=== PATIENT | female | born 1990 | race American Indian/Alaskan Native ===

== ENCOUNTER 2016-11-14 13:28 | Emergency (ER) | payer MEDICAID ==
[2016-11-14 14:18] LABS: Basophils % (Auto) 0.2 % (0.0-1.8); Eosinophils % (Auto) 1.3 % (0.0-4.3); Hematocrit 35.6 % (30.3-42.9); Hemoglobin 11.6 gm/dl (10.1-14.3); Mean Corpuscular HGB Conc 33 % (30-34); Mean Corpuscular Hemoglobin 26 pg (28-32); Mean Corpuscular Volume 81 fl (79-97); Platelet Count 237 K/mm3 (140-440); Red Blood Count 4.42 M/mm3 (3.65-5.03); Red Cell Distribution Width 15.7 % (13.2-15.2); White Blood Count 7.6 K/mm3 (4.5-11.0)
[2016-11-14 14:45] LABS: Anion Gap 18 mmol/L; Blood Urea Nitrogen 8 mg/dL (7-17); Calcium 9.1 mg/dL (8.4-10.2); Carbon Dioxide 22 mmol/L (22-30); Chloride 101.3 mmol/L (98-107); Glucose 99 mg/dL (65-100); Potassium 3.7 mmol/L (3.6-5.0); Sodium 138 mmol/L (137-145)
[2016-11-14] MEDS ORDERED: PEPCID IV ONE (15:11)
[2016-11-14] MEDS ORDERED: BENADRYL IV ONE ×2 (15:11→16:32)
[2016-11-14] MEDS ORDERED: NACL 0.9% 1000 ML 1,000 ML IV ONE (15:11)
[2016-11-14] MEDS ORDERED: TYLENOL PO ONE (15:11)
--- NOTE | 2016-11-14 15:13 | Emergency Department Report ---
ED General Adult HPI - General Chief complaint: Chest Pain Stated complaint: CHECK POSS BLOOD CLOT IN LUNG/CHEST PAIN Time Seen by Provider: 11/14/16 14:59 Source: patient, RN notes reviewed Mode of arrival: Ambulatory Limitations: No Limitations - History of Present Illness Initial comments: This is a 26-year-old female. She is previously unknown to me. She is 5, para 2. Last menstrual period is September 25. The patient is currently , and is scheduled for termination on November 18. The patient has a history of lower extremity DVT, and subsequent pulmonary embolus. She reports that she was on systemic anticoagulation, xarelto, but ran out of her medication 5 months ago. The patient presents to the ER complaining of chest pain. The chest pain is central. It radiates to the back. There is no vomiting or diaphoresis. There is no shortness of breath. There is no hematemesis of bright red blood per rectum. There is no abdominal pain. The patient denies irritative obstructive urinary symptoms. The pain has been present for 2 weeks. The patient reports taking Aleve at home multiple times without improvement in her pain. The patient reports that she was diagnosed with a pulmonary embolus while living in [place]. The patient indicates that she initially had a nuclear medicine study, which was initially read as negative, and subsequently found to be a false negative. Patient then reports that she had a CT scan of the chest which was positive for pulmonary embolus. The patient indicates she is able to tolerate IV dye, indicates that she gets nonspecific facial swelling, but does not have anaphylaxis. She reports that she requires premedication with Benadryl before and after injection of IV dye. -: Gradual, week(s) Location: chest Radiation: back Quality: aching Improves with: rest Worsens with: movement Associated Symptoms: chest pain - Related Data Previous Rx's Medication Instructions Recorded Last Taken Type EPINEPHrine [Epipen 2-Adam] 0.3 mg IM DAILY PRN #2 ml 11/14/16 Unknown Rx Allergies Allergy/AdvReac Type Severity Reaction Status Date / Time Iodinated Contrast Media - Allergy Swelling Verified 11/14/16 13:55 IV Dye ED Review of Systems ROS: Stated complaint: CHECK POSS BLOOD CLOT IN LUNG/CHEST PAIN Other details as noted in HPI Constitutional: denies: fever Eyes: denies: vision change ENT: denies: epistaxis Respiratory: denies: shortness of breath Cardiovascular: chest pain Gastrointestinal: denies: abdominal pain Genitourinary: denies: dysuria, frequency Musculoskeletal: denies: back pain Skin: denies: lesions Neurological: denies: weakness Psychiatric: as per HPI ED Past Medical Hx - Past Medical History Hx Pulmonary Embolism: Yes - Surgical History Hx Appendectomy: Yes Additional Surgical History: L shoulder - Social History Smoking Status: Current Every Day Smoker Substance Use Type: Alcohol - Medications Home Medications: Home Medications Medication Instructions Recorded Confirmed Last Taken Type EPINEPHrine [Epipen 2-Adam] 0.3 mg IM DAILY PRN #2 ml 11/14/16 Unknown Rx ED Physical Exam - General Limitations: No Limitations General appearance: alert, in no apparent distress - Head Head exam: Present: atraumatic, normocephalic - Eye Eye exam: Present: normal appearance - ENT ENT exam: Present: normal exam, normal orophraynx, mucous membranes moist, normal external ear exam - Neck Neck exam: Present: normal inspection, full ROM. Absent: tenderness, meningismus - Respiratory Respiratory exam: Present: normal lung sounds bilaterally, chest wall tenderness. Absent: respiratory distress, wheezes, rales, rhonchi, stridor - Cardiovascular Cardiovascular Exam: Present: regular rate, normal rhythm, normal heart sounds. Absent: bradycardia, tachycardia, irregular rhythm, systolic murmur, diastolic murmur, rubs, gallop - GI/Abdominal GI/Abdominal exam: Present: soft, normal bowel sounds. Absent: distended, tenderness, guarding, rebound, rigid, pulsatile mass - Extremities Exam Extremities exam: Present: normal inspection, full ROM, normal capillary refill. Absent: tenderness, pedal edema, joint swelling, calf tenderness - Back Exam Back exam: Present: normal inspection, full ROM. Absent: tenderness, CVA tenderness (R), CVA tenderness (L), muscle spasm, paraspinal tenderness, vertebral tenderness - Neurological Exam Neurological exam: Present: alert, oriented X3, normal gait, other (Extraocular movements intact. Tongue midline. No facial droop. Facial sensation intact to light touch in the V1, V2, V3 distribution bilaterally. 5 and 5 strength in 4 extremities.. Sensation is intact to light touch in 4 extremities.). Absent : motor sensory deficit - Psychiatric Psychiatric exam: Present: normal affect, normal mood - Skin Skin exam: Present: warm, dry, intact, normal color. Absent: rash ED Course Vital Signs 11/14/16 11/14/16 13:49 16:43 Temperature 98.3 F 97.6 F Pulse Rate 73 74 Respiratory 16 16 Rate Blood Pressure 118/64 Blood Pressure 132/76 [Left] O2 Sat by Pulse 100 96 Oximetry - Reevaluation(s) Reevaluation #1: 11/14/16 16:31 differential diagnosis: Costochondritis, acute coronary syndrome , pneumonia, pulmonary embolus, incidental Assessment and plan: 26-year-old female with history of DVT, pulmonary embolus, currently , with chest pain for 2 weeks. The patient is afebrile with reassuring vital signs. My bedside ultrasound demonstrates an intrauterine , with heartbeat. heart tones are pending. Laboratory studies reviewed, unremarkable, with the exception of elevated d-dimer. Chest pain is present for 2 weeks. Troponins negative 2, EKG morphologically within normal limits 2, patient low risk by MONY score, low risk by heart score, given 2 weeks of symptoms, the patient is at low risk for major adverse cardiac event, and an oblique she requires admission for acute coronary syndrome risk stratification. The patient was offered either nuclear medicine study or CT scan of the chest to rule out pulmonary embolus given elevated d-dimer. The risks, benefits, and alternatives of either study would discuss with the patient, including the risks of anaphylaxis, cancer, defects. Through shared informed decision making, the patient opts for a CT scan of the chest. She is premedicated prior to CT scan. CT scan of the chest has been performed, results are pending, patient is currently resting comfortably. Reevaluation #2: 11/14/16 17:12 CT scan of the chest is negative. Patient resting comfortably. No acute airway issues. Patient will be discharged with instructions to follow up with outpatient gynecology, outpatient cardiology. Return precautions were reviewed. Patient will be discharged with an epinephrine pen in case she develops allergic symptoms. 11/14/16 17:15 ED Medical Decision Making - Lab Data Result diagrams: 11/14/16 14:06 11/14/16 14:06 Vital Signs 11/14/16 13:49 Temperature 98.3 F Pulse Rate 73 Respiratory 16 Rate Blood Pressure 118/64 O2 Sat by Pulse 100 Oximetry Lab Results 11/14/16 11/14/16 11/14/16 Range/Units 14:06 14:06 14:06 WBC 7.6 (4.5-11.0) K/mm3 RBC 4.42 (3.65-5.03) M/mm3 Hgb 11.6 (10.1-14.3) gm/dl Hct 35.6 (30.3-42.9) % MCV 81 (79-97) fl MCH 26 L (28-32) pg MCHC 33 (30-34) % RDW 15.7 H (13.2-15.2) % Plt Count 237 (140-440) K/mm3 Lymph % (Auto) 26.1 (13.4-35.0) % Owen % (Auto) 7.3 (0.0-7.3) % Eos % (Auto) 1.3 (0.0-4.3) % Baso % (Auto) 0.2 (0.0-1.8) % Lymph # 2.0 (1.2-5.4) K/mm3 Owen # 0.6 (0.0-0.8) K/mm3 Eos # 0.1 (0.0-0.4) K/mm3 Baso # 0.0 (0.0-0.1) K/mm3 Seg Neutrophils % 65.1 (40.0-70.0) % Seg Neutrophils # 5.0 (1.8-7.7) K/mm3 D-Dimer 654.78 H (0-234) ng/mlDDU Sodium 138 (137-145) mmol/L Potassium 3.7 (3.6-5.0) mmol/L Chloride 101.3 (98-107) mmol/L Carbon Dioxide 22 (22-30) mmol/L Anion Gap 18 mmol/L BUN 8 (7-17) mg/dL Creatinine 0.5 L (0.7-1.2) mg/dL Estimated GFR > 60 ml/min BUN/Creatinine Ratio 16.00 % Glucose 99 (65-100) mg/dL Calcium 9.1 (8.4-10.2) mg/dL Troponin T < 0.010 (0.00-0.029) ng/mL 11/14/16 Range/Units 15:32 WBC (4.5-11.0) K/mm3 RBC (3.65-5.03) M/mm3 Hgb (10.1-14.3) gm/dl Hct (30.3-42.9) % MCV (79-97) fl MCH (28-32) pg MCHC (30-34) % RDW (13.2-15.2) % Plt Count (140-440) K/mm3 Lymph % (Auto) (13.4-35.0) % Owen % (Auto) (0.0-7.3) % Eos % (Auto) (0.0-4.3) % Baso % (Auto) (0.0-1.8) % Lymph # (1.2-5.4) K/mm3 Owen # (0.0-0.8) K/mm3 Eos # (0.0-0.4) K/mm3 Baso # (0.0-0.1) K/mm3 Seg Neutrophils % (40.0-70.0) % Seg Neutrophils # (1.8-7.7) K/mm3 D-Dimer (0-234) ng/mlDDU Sodium (137-145) mmol/L Potassium (3.6-5.0) mmol/L Chloride (98-107) mmol/L Carbon Dioxide (22-30) mmol/L Anion Gap mmol/L BUN (7-17) mg/dL Creatinine (0.7-1.2) mg/dL Estimated GFR ml/min BUN/Creatinine Ratio % Glucose (65-100) mg/dL Calcium (8.4-10.2) mg/dL Troponin T < 0.010 (0.00-0.029) ng/mL - EKG Data -: EKG Interpreted by Ri EKG shows normal: sinus rhythm, axis, intervals, QRS complexes, ST-T waves Rate: normal - EKG Data When compared to previous EKG there are: previous EKG unavailable 11/14/16 16:33 EKG #1 demonstrates normal sinus, 61 bpm, normal intervals, normal axis, not morphologically consistent with STEMI. EKG #2 demonstrates normal sinus, 60 bpm, normal intervals, normal axis, not morphologically consistent with STEMI. - Radiology Data Radiology results: pending, report reviewed, image reviewed CT scan of the chest is negative for pulmonary embolus Critical care attestation.: If time is entered above; I have spent that time in minutes in the direct care of this critically ill patient, excluding procedure time. ED Disposition Clinical Impression: Chest wall pain, Disposition: DISCHARGED TO HOME OR SELFCARE Is pt being admited?: No Does the pt Need Aspirin: No Condition: Stable Instructions: Chest Pain (ED), Costochondritis (ED) Additional Instructions: Laboratory studies, EKG, CT scan of the chest were unremarkable. Follow-up with any of the listed gynecology specialist as soon as possible, or follow-up with here previously arranged outpatient gynecology appointment for elective termination of . Take acetaminophen every 4-6 hours as needed for pain. Follow-up with any of the listed cardiology specialists within the next week-10 days. Return to the ER right away with new pain, worsened pain, migration of pain, fevers, chills, shortness of breath, intractable nausea or vomiting, inability to tolerate liquid feeds, confusion, change in mental status. Prescriptions: EPINEPHrine [Epipen 2-Adam] 0.3 mg IM DAILY PRN #2 ml PRN Reason: Allergic Reaction Referrals: PRIMARY CARE, [Primary Care Provider] - 3-5 Days [facility] [Provider Group] - 3-5 Days [facility] [Provider Group] - 3-5 Days [facility] [Provider Group] - 3-5 Days [facility] [Provider Group] - 3-5 Days [facility] [Provider Group] - 3-5 Days Forms: Work/School Release Form(ED)
[2016-11-14] MEDS ORDERED: NACL ONE (15:47)
--- NOTE | 2016-11-14 16:32 | Cat Scan Report ---
CT chest: History: Chest pain. Findings: No evidence of aneurysm or pulmonary embolism.No mediastinal mass or adenopathy. No pleural or pericardial effusion. Normal lung parenchyma. No discrete nodularity calcification or mass. Impression: Essentially negative CT scan of chest .
[2016-11-14 16:54] VITALS: BP 132/76
== END 2016-11-14 18:06 | disposition home or self-care (01) ==
LOC: ED 13:28
DX: O26.891 Other specified pregnancy related conditions, first trimester (principal); O88.211 Thromboembolism in pregnancy, first trimester; R07.89 Other chest pain; F17.200 Nicotine dependence, unspecified, uncomplicated; Z90.49 Acquired absence of other specified parts of digestive tract; Z3A.01 Less than 8 weeks gestation of pregnancy; Z88.8 Allergy status to other drugs, medicaments and biological substances
CPT/HCPCS: 36415; 71275; 80048; 84484; 85025; 85379; 93005; 93010; 96361; 96374; 96375; 96376; 99285; J1200; J2930; J7030; Q9967